=== PATIENT | male | born 1970 | race Caucasian/White ===

== ENCOUNTER 2019-01-20 08:56 | Day surgery (SDC) | payer OTHER ==
[2019-01-17 15:33] VITALS: BMI 29.2
[2019-01-20 10:51] VITALS: TEMP 97.7
[2019-01-20 11:47] VITALS: BP 131/79; PULSE 50
--- NOTE | 2019-01-21 15:51 | PATH ---
Surgical Pathology Report Patient Name: VISHAL CAMARGO [facility] Rec. #: [id number] /Age/Gender: 1970 (Age: 48) / M Account: [id number] Location: U-ENDOSCOPY Taken: 01/20/2019 Received: 01/20/2019 Reported: 01/21/2019 Physicians: Priscilla Rincon M.D. Specimen(s) Received A: AFFERENT LOOP B: ANASTOMOSIS C: BX GASTRIC POUCH D: POLYP TRANSVERSE COLON Clinical History Colon cancer screening, iron deficiency anemia, gastric bypass Postoperative diagnosis: Gastric bypass, bariatric surgery status, colon polyp Final Diagnosis A. AFFERENT LOOP, BIOPSY: FRAGMENTS OF SMALL INTESTINAL MUCOSA WITH NO SIGNIFICANT PATHOLOGIC CHANGE. NO HISTOLOGIC EVIDENCE OF INTRAEPITHELIAL LYMPHOCYTOSIS. B. ANASTOMOSIS-GASTRIC BYPASS, BIOPSY: FRAGMENTS OF SMALL INTESTINAL MUCOSA WITH NO SIGNIFICANT PATHOLOGIC CHANGE. NO HISTOLOGIC EVIDENCE OF INTRAEPITHELIAL LYMPHOCYTOSIS. SEPARATE FRAGMENTS OF GASTRIC MUCOSA WITH NO SIGNIFICANT PATHOLOGIC CHANGE. IMMUNOSTAIN FOR H. PYLORI IS NEGATIVE. C. GASTRIC POUCH, BIOPSY: GASTRIC MUCOSA WITH NO SIGNIFICANT PATHOLOGIC CHANGE. IMMUNOSTAIN FOR H. PYLORI IS NEGATIVE. NEGATIVE FOR INTESTINAL METAPLASIA. D. TRANSVERSE COLON POLYP, BIOPSY: POLYPOID COLONIC MUCOSA WITH FOCAL SURFACE HYPERPLASTIC CHANGE. Electronically Signed Leila Russ M.D. Gross Description A. Received in formalin, labeled "biopsy afferent loop" are 3 gonzalez, irregular portions of soft tissue ranging from 0.1-0.4 cm. in greatest dimension. The specimens are submitted in toto in one cassette. B. Received in formalin, labeled "biopsy anastomosis gastric bypass" are 4 gonzalez, irregular portions of soft tissue ranging from 0.2-0.3 cm. in greatest dimension. The specimens are submitted in toto in one cassette. C. Received in formalin, labeled "biopsy gastric pouch" are 2 gonzalez, irregular portions of soft tissue measuring 0.4 and 0.5 cm. in greatest dimension. The specimens are submitted in toto in one cassette. D. Received in formalin, labeled "polyp transverse colon" is a gonzalez, irregular portion of soft tissue measuring 0.3 cm. in greatest dimension. The specimen is submitted in toto in one cassette. 01/20/2019 saudi01/20/2019
== END 2019-01-20 11:47 | disposition home or self-care (01) ==
LOC: JASU-ENDO 08:56
PROVIDERS: ATTEND Internal Medicine Gastroenterology
PROC: 0DB98ZX Excision of Duodenum, Via Natural or Artificial Opening Endoscopic, Diagnostic (ICD-10-PCS; 2019-01-20)
PROC: 0DB68ZX Excision of Stomach, Via Natural or Artificial Opening Endoscopic, Diagnostic (ICD-10-PCS; 2019-01-20)
PROC: 0DBL8ZX Excision of Transverse Colon, Via Natural or Artificial Opening Endoscopic, Diagnostic (ICD-10-PCS; principal; 2019-01-20 09:45)
DX: Z12.11 Encounter for screening for malignant neoplasm of colon (principal); Z80.0 Family history of malignant neoplasm of digestive organs; E61.1 Iron deficiency; D12.3 Benign neoplasm of transverse colon; K64.8 Other hemorrhoids; Z98.84 Bariatric surgery status
CPT/HCPCS: 88305-TC; 88342-TC

== ENCOUNTER 2024-03-07 04:32 | Day surgery (SDC) | payer OTHER ==
[2024-03-05 14:47] VITALS: BMI 28.8
[2024-03-07 10:52] VITALS: TEMP 98.4
[2024-03-07 11:00] VITALS: BP 105/67; PULSE 67; RESP 17
== END 2024-03-07 11:00 | disposition home or self-care (01) ==
LOC: JASU-ENDO 04:32
PROVIDERS: ATTEND Internal Medicine Gastroenterology
PROC: 0DJD8ZZ Inspection of Lower Intestinal Tract, Via Natural or Artificial Opening Endoscopic (ICD-10-PCS; principal; 2024-03-07 09:30)
DX: Z12.11 Encounter for screening for malignant neoplasm of colon (principal); K64.8 Other hemorrhoids; Z86.010 Personal history of colon polyps